=== PATIENT | male | born 1980 | race Caucasian/White ===

== ENCOUNTER → 2018-06-25 | Outpatient (CLI) | payer BC, OTHER ==
[2018-06-25 09:51] VITALS: BP 129/72
--- NOTE | 2018-06-29 12:39 | CATHLAB ---
[facility] [address] [place] [address] INVASIVE PROCEDURE REPORT Name: KLAUDIA BLAIR Room #: REG CL [facility]#: [id number] ������������� Admission: 06/25/18 ������������� Attend Phys: Placido Renae, Discharge: ��� ������������� ��� Date of : 84 Date of Service: 06/25/1825 �� Report #: [id number] �������� ��������������������������������������������[id number] THIS REPORT FOR: //name// CC: JOSÉ Renae This is a [employer] implantable loop recorder. INDICATION: Cryptogenic stroke. DESCRIPTION OF PROCEDURE: The potential benefits and risks of the procedure were discussed. The patient's left anterior chest was prepped and draped in a sterile fashion. 1% Xylocaine was used as local anesthetic. A 1 cm incision was made through which a [employer] loop recorder was placed. This was a Confirm Rx ICM [id number]. A single 5-0 absorbable stitch was placed, dressing placed. He tolerated the procedure well. Device was functioning normally. IMPRESSION: Successful [employer] implantable loop recorder for cryptogenic stroke. ��������������������������������������������� <ELECTRONICALLY SIGNED> ���������������������������������������� By: Placido Renae MD, [facility] ��������������������������������������������� 06/29/18 1239 [id number] Placido Renae MD, FACC /nt
== END | disposition home or self-care (01) ==
LOC: CATH 07:41
DX: I63.9 Cerebral infarction, unspecified (principal)

== ENCOUNTER → 2019-06-28 | Outpatient (CLI) | payer BC ==
[2019-06-28 10:43] LABS: INR 1.1; PROTIME 10.8 Seconds (9.3-11.4)
[2019-06-28 12:34] LABS: CSF GLUCOSE 53 mg/dL (40-70); CSF PROTEIN 51 mg/dL (15-45)
[2019-06-28 12:50] LABS: CSF CLARITY CLEAR; CSF COLOR COLORLESS; CSF RBC 8 /mm3; CSF WBC 2 /mm3 (0-10); VOLUME 12 ml
--- NOTE | 2019-06-29 17:07 | PATH ---
[facility] [address] [place] [address] PATHOLOGY RPT PROCEDURE Name: KLAUDIA BLAIR Room #: REG JOSE Posada.#: [id number] Admission: 06/28/19 Date of : 84 Discharge: Report #: [id number] Path Case #: [id number] Note [facility] Accession Number: [id number] TESTS RESULT FLAG UNITS REF RANGE LAB Clinician Provided Cytology Information No. of containers..01 Other (Miscellaneous) Source: CSF DIAGNOSIS: 02 CSF NEGATIVE FOR MALIGNANT EPITHELIAL CELLS. RARE LYMPHOCYTES PRESENT. NEGATIVE FOR VIRAL INCLUSIONS OR PARASITES. Pathologist ICD10: 02 F03.90 Signed out by: Dianna Devries MD, Pathologist NPI- [id number] Performed by: Jocy Mcneill, Con[employer] ([facility]) Gross description: 01 2ML, CLEAR COLORLESS, 1 TP /LCS 06/28/20196 Local FLAG LEGEND: L-Low Normal,H-High Normal,LL-Alert Low,HH-Alert High <-Panic Low,>-Panic High,A-Abnormal,AA-Critical Abnormal Performed at: [address] [place] [address] Chas Valle MD, [address] [address] Dianna Devries MD, Specimen Comment: A courtesy copy of this report has been sent to [phone] Specimen Comment: Report sent to Performed at: [address], [place], [place] [id number] MD Chas Valle MD Phone: [phone]
== END ==
LOC: RAD 09:22
PROVIDERS: Internal Medicine; Radiology Diagnostic Radiology
DX: F91.9 Conduct disorder, unspecified (principal)